=== PATIENT | female | born 1935 | race Caucasian/White ===

== ENCOUNTER → 2018-07-22 13:53 | Outpatient (CLI) | payer MEDICARE, SELFPAY ==
--- NOTE | 2018-07-22 13:56 | BI_ITS ---
MAMMOGRAPHY - BILATERAL SCREENING REASON FOR EXAM: Female, 83 years old. Routine annual screening examination. PERTINENT HISTORY: Non-contributory. TECHNIQUE: 2-D mediolateral oblique (MLO) and craniocaudad (CC) views of both breasts were obtained. CAD: Full Field Digital Mammography with Computer Added Detection was performed. COMPARISON: Comparison is made with prior study dated May 22, 2016 and May 17, 2015. FINDINGS: Breast Composition: The breasts are extremely dense, which lowers the sensitivity of mammography. There are no dominant masses or suspicious calcifications. No other significant abnormalities are identified. There has been no significant change since the prior study. BI/SCREENING MAMM (CAD), BILAT IMPRESSION: Stable bilateral screening mammogram. Yearly follow-up mammogram recommended. (A) ASSESSMENT CATEGORY: BIRADS Category 1: Negative. A letter regarding these results will be sent to the patient by the facility within 30 days. Approximately 10% of breast cancers are not detected by mammography. A normal mammogram should not delay biopsy of a clinically suspicious abnormality. [id number] Electronically Signed: Rio Jung MD at 10:45 EDT Tel [phone], Service support ,
== END ==
PROVIDERS: Family Provider Internal Medicine; PCP Internal Medicine; Visit Provider Internal Medicine
DX: Z12.31 Encounter for screening mammogram for malignant neoplasm of breast (principal)
CPT/HCPCS: 77067

== ENCOUNTER 2020-11-06 07:13 | Emergency (ER) | payer MEDICARE, SELFPAY ==
[2020-11-06 07:13] VITALS: O2SAT 92
[2020-11-06 07:14] VITALS: BP 158/93; PULSE 94; TEMP 36.6; O2SAT 89; BMI 20.9
--- NOTE | 2020-11-06 07:33 | ED.VIS.GEN ---
History of Present Illness Chief Complaint: Nosebleed Informant: Patient Narrative: 89-year-old female presenting with epistaxis from the left nare. She states that she had a clamp at home and put this on. When she clamped it she started having bleeding come from the right nare. She denies any trauma. She denies being on blood thinners. She states her epistaxis started about midnight and has been intermittent. Past Medical History - Allergies and Home Meds Allergies/Adverse Reactions: Allergies DUST Allergy (Uncoded 11/06/20 07:21) Unknown SEASONL Allergy (Uncoded 11/06/20 07:21) Unknown Primary Care Physician: Savi Soliz MD [Primary Care Provider] - Prior records reviewed: Yes Past Medical History: - - Asthma, arthritis Surgical History: noncontributory Lives: Alone Smoking Status: Never smoker Alcohol: None Drugs: None Review of Systems General: Denies: Chills, Fever, Sweats Eyes: Denies: Visual changes - bilaterally, Diplopia ENT: Reports: - - Epistaxis. Denies: Rhinorrhea, Sore throat Cardiovascular: Denies: Chest pain, Palpitations Respiratory: Denies: Dyspnea, Cough, Dyspnea on exertion Gastrointestinal: Denies: Abdominal pain, Nausea, Vomiting, Diarrhea, Melena, Hematochezia Genitourinary: Denies: Dysuria, Hematuria, Frequency Musculoskeletal: Denies: Myalgias, Arthralgias, Neck pain, Back pain, Swelling, Extremity Pain, -, - Skin: Denies: Rash, Wounds Neurological: Reports: -, -. Denies: Headache, Weakness, Parasthesia, Numbness Psych: Reports: -. Denies: Depression, Anxiety, Suicidal thoughts, Suicidal ideations Physical Exam Vital Signs/Narrative: Vital Signs Temp Pulse BP Pulse Ox 11/06/20 07:14 97.9 F 94 158/93 H 89 11/06/20 07:13 92 General: Well nourished, Well developed, No Acute Distress Head: Normocephalic, Atraumatic Eyes: Perrl, EOMI ENT: Moist mucous membranes, - - Epistaxis from left naris Cardiovascular: Regular rate, Regular rhythm Skin: Normal color, No rash. Negative for: Pallor Neurological: Alert, Oriented x3 Psychological: Normal affect, Normal Mood Diagnostic/Tx/Re-eval - Medical Decision Making Patient presenting with bleeding from the left naris. I am unable to visualize the bleeding however it does go posterior into her throat. When she is clamped she starts to bleed from the right naris which makes me think that she has a posterior bleed. 7.5 cm rapid Rhino was placed in the right naris. This seems to have stopped the bleeding. Patient is monitored in the ED to ensure she has no further bleeding. Patient already sees Dr. Castro. Will make a follow-up appointment with him. Patient given return precautions. She is stable for discharge at this time. Impression: 1. Epistaxis left naris ED Disposition - Plan for ED Patient: Disposition: Home or Assisted Living Instructions: Nosebleed Referrals: Savi Soliz MD [Primary Care Provider] - Juan Castro MD [STAFF PHYSICIAN] -
== END 2020-11-06 09:18 | disposition home or self-care (01) ==
PROVIDERS: Emergency Provider Student in an Organized Health Care Education/Training Program; PCP Internal Medicine
DX: R04.0 Epistaxis (principal)
CPT/HCPCS: 30905; 99285; A4216